=== PATIENT | female | born 1940 | race Caucasian/White ===

== ENCOUNTER 2018-10-03 18:56 | Inpatient (IN) | payer MEDICARE ==
[~2018-10-03] VITALS: Ht 165.1 cm; Wt 72.6 kg
[2018-10-03] MEDS ORDERED: Adenosine 6mg/2ml Inj IVP ONE (19:30)
--- NOTE | 2018-10-03 19:30 | NUR ---
ED Nurse Note: Patient walked in to ER due to palpitation. Patient's HR at triage 190. Stated that ate 70% chocolate 2 hrs ago, and after that her heart started bitting so fast. AAO x4, HR 190, other VSS at this time, skin is dry warm to touch.
[2018-10-03 19:31] LABS: BASOPHILS % (AUTO) 0.6 % (0.0-2.0); EOSINOPHILS % (AUTO) 0.5 % (0.0-3.0); HEMATOCRIT 42.9 % (37.0-47.0); HEMOGLOBIN 13.7 G/DL (12.0-16.0); LYMPHOCYTES % (AUTO) 11.4 % (20.0-45.0); MEAN CORPUSCULAR VOLUME 87 FL (80-99); MONOCYTES % (AUTO) 4.6 % (1.0-10.0); NEUTROPHILS % (AUTO) 82.9 % (45.0-75.0); PLATELET COUNT 249 K/UL (150-450); RED BLOOD COUNT 4.91 M/UL (4.20-5.40); RED CELL DISTRIBUTION WIDTH 12.8 % (11.6-14.8); WHITE BLOOD COUNT 12.5 K/UL (4.8-10.8)
[2018-10-03 19:48] LABS: ANION GAP 10 mmol/L (5-15); BLOOD UREA NITROGEN 19 mg/dL (7-18); CARBON DIOXIDE 25 MMOL/L (21-32); CHLORIDE 102 MMOL/L (98-107); CREATININE 0.9 MG/DL (0.55-1.30); POTASSIUM 4.1 MMOL/L (3.5-5.1); SODIUM 137 MMOL/L (136-145)
--- NOTE | 2018-10-03 19:52 | Emergency Room Report ---
History of Present Illness General Chief Complaint: Palpitations Source: Patient Present Illness HPI Patient presents with complaints of palpitation sensation ongoing for approximately 2 hours prior to arrival patient provides a remote history of some similar presentation many years ago Denies any chest pain or heaviness with this denies any vomiting patient reports eating a piece of chocolate In correlation with the symptoms starting As the palpitation sensation progressed she was concerned and came to the ER denies any neck pain denies any jaw pain denies any focal weakness Allergies: Coded Allergies: SULFA (SULFONAMIDE ANTIBIOTICS) (Unverified Allergy, Unknown, 10/04/18) Uncoded Allergies: SULFA (Allergy, Unknown, 10/03/18) Patient History Past Medical History: see triage record Pertinent Family History: none Now: No Reviewed Nursing Documentation: PMH: Agreed; PSxH: Agreed Nursing Documentation-PMH Past Medical History: No History, Except For Hx Diabetes: Yes Review of Systems All Other Systems: negative except mentioned in HPI Physical Exam Vital Signs Date Time Temp Pulse Resp B/P (MAP) Pulse Ox O2 Delivery O2 Flow Rate FiO2 10/03/18 18:58 97.5 196 20 106/52 (70) 95 Room Air Sp02 EP Interpretation: reviewed, normal General Appearance: mild distress Head: normocephalic, atraumatic Eyes: bilateral eye PERRL, bilateral eye EOMI ENT: hearing grossly normal, normal pharynx, TMs + canals normal, uvula midline Neck: full range of motion, supple, no meningismus, no bony tend Respiratory: lungs clear, normal breath sounds, no rhonchi, no respiratory distress, no retraction, no accessory muscle use Cardiovascular #1: normal peripheral pulses, no edema, no gallop, no JVD, no murmur, tachycardia Gastrointestinal: normal bowel sounds, non tender, soft, no mass, no organomegaly, non-distended, no guarding, no hernia, no pulsatile mass, no rebound Genitourinary: no CVA tenderness Musculoskeletal: normal inspection Neurologic: oriented x3, responsive, deputy commonwealth's attorney III-XII nml as tested, motor strength/ tone normal, sensory intact Psychiatric: mood/affect normal Skin: no rash Lymphatic: normal inspection, no adenopathy Procedures Critical Care Time Critical Care Time 50 minutes for multiple re-evaluations critical presentation concern for cardiopulmonary arrest not including any procedural time Medical Decision Making Diagnostic Impression: Primary Impression: SVT (supraventricular tachycardia) Additional Impressions: Palpitations Elevated troponin ER Course Patient is a fairly complex patient with multiple differential to consideration including but not limited to cardiac cardiopulmonary and vascular emergencies Patient's heart rate on exam is extremely tachycardic EKG shows concerning findings of SVT patient placed on a score caller And after initial attempt of vagal maneuvering which was not successful patient was provided with adenosine After 1 dose patient did respond well and converted to a sinus rhythm Patient does appear to show some signs of troponin Leak was provided with Blood thinning medication as well Remains chest pain-free and improved for admission for continued inpatient care Labs Test 10/03/18 19:15 White Blood Count 12.5 K/UL (4.8-10.8) Red Blood Count 4.91 M/UL (4.20-5.40) Hemoglobin 13.7 G/DL (12.0-16.0) Hematocrit 42.9 % (37.0-47.0) Mean Corpuscular Volume 87 FL (80-99) Mean Corpuscular Hemoglobin 27.9 PG (27.0-31.0) Mean Corpuscular Hemoglobin Concent 32.0 G/DL (32.0-36.0) Red Cell Distribution Width 12.8 % (11.6-14.8) Platelet Count 249 K/UL (150-450) Mean Platelet Volume 8.9 FL (6.5-10.1) Neutrophils (%) (Auto) 82.9 % (45.0-75.0) Lymphocytes (%) (Auto) 11.4 % (20.0-45.0) Monocytes (%) (Auto) 4.6 % (1.0-10.0) Eosinophils (%) (Auto) 0.5 % (0.0-3.0) Basophils (%) (Auto) 0.6 % (0.0-2.0) Prothrombin Time 10.2 SEC (9.30-11.50) Prothromb Time International Ratio 1.0 (0.9-1.1) Activated Partial Thromboplast Time 27 SEC (23-33) Sodium Level 137 MMOL/L (136-145) Potassium Level 4.1 MMOL/L (3.5-5.1) Chloride Level 102 MMOL/L (98-107) Carbon Dioxide Level 25 MMOL/L (21-32) Anion Gap 10 mmol/L (5-15) Blood Urea Nitrogen 19 mg/dL (7-18) Creatinine 0.9 MG/DL (0.55-1.30) Estimat Glomerular Filtration Rate mL/min (>60) Glucose Level 237 MG/DL (74-106) Calcium Level 9.0 MG/DL (8.5-10.1) Total Bilirubin 0.8 MG/DL (0.2-1.0) Aspartate Amino Transf (AST/SGOT) 18 U/L (15-37) Alanine Aminotransferase (ALT/SGPT) 22 U/L (12-78) Alkaline Phosphatase 73 U/L (46-116) Total Creatine Kinase 52 U/L (26-308) Creatine Kinase MB 3.0 NG/ML (0.0-3.6) Creatine Kinase MB Relative Index 5.7 Troponin I 0.178 ng/mL (0.000-0.056) Pro-B-Type Natriuretic Peptide 204 pg/mL (0-125) Total Protein 7.2 G/DL (6.4-8.2) Albumin 3.5 G/DL (3.4-5.0) Globulin 3.7 g/dL Albumin/Globulin Ratio 0.9 (1.0-2.7) Lipase 105 U/L (73-393) EKG Diagnostic Results Rate: tachycardiac Rhythm: other - svt Other Impression svt Rhythm Strip Diag. Results EP Interpretation: yes Rate: 190 Rhythm: no PVC's, other - svt Chest X-Ray Diagnostic Results Chest X-Ray Diagnostic Results : Chest X-Ray Ordered: Yes # of Views/Limited/Complete: 1 View Indication: Other - palpitation EP Interpretation: Yes Interpretation: no consolidation, no effusion, no pneumothorax Impression: No acute disease Electronically Signed by: Wilfred James DO Last Vital Signs Date Time Temp Pulse Resp B/P (MAP) Pulse Ox O2 Delivery O2 Flow Rate FiO2 10/03/18 19:42 190 10/03/18 19:41 117/55 10/03/18 18:58 97.5 20 95 Room Air Status: improved Disposition: ADMITTED INPATIENT Condition: Serious Wilfred James DO Oct 03, 2018 19:52
[2018-10-03 20:00] LABS: ALANINE AMINOTRANSFERASE 22 U/L (12-78); ALBUMIN 3.5 G/DL (3.4-5.0); ALBUMIN/GLOBULIN RATIO 0.9 (1.0-2.7); ALKALINE PHOSPHATASE 73 U/L (46-116); ASPARTATE AMINO TRANSFERASE 18 U/L (15-37); BILIRUBIN,TOTAL 0.8 MG/DL (0.2-1.0); CREATINE KINASE 52 U/L (26-308)
[2018-10-03] MEDS ORDERED: Enoxaparin 80mg Inj SUBQ ONE (20:30)
[2018-10-03 21:00] VITALS: BP 117/55
[2018-10-03] MEDS ORDERED: Enalaprilat 1.25mg/ml Inj IV PRN (21:30)
[2018-10-03] MEDS ORDERED: dilTIAZem HCl 25mg/5ml Inj IV PRN (21:30)
[2018-10-03] MEDS ORDERED: Nitroglycerin Subl 0.4mg tab SL PRN (21:30)
[2018-10-03] MEDS ORDERED: Metoprolol 5mg/5ml Inj IVP PRN (21:30)
[2018-10-03] MEDS ORDERED: Albuterol/Ipratropium 3ml neb HHN PRN (21:30)
[2018-10-03] MEDS ORDERED: Miralax 17gm pkt ORAL PRN (21:30)
[2018-10-03 21:48] VITALS: BP 125/65
--- NOTE | 2018-10-03 21:48 | NUR ---
ED Nurse Note: Patient was admited to Tele due to palpitation, high HR. Patient was transfered to the unit via gurney by ACLS protocol with all belongings. AAO x4, VSS at this time, skin is dry warm to touch.
[2018-10-03 22:00] VITALS: BP 118/53
--- NOTE | 2018-10-03 22:00 | NUR ---
NURSE NOTES: Received report from Kenyetta RN, pt. received from ER, pt. A/O x's4- able to make needs known, night monitor placed- VS taken, full body assessment done- skin intact, pt. teaching done and pt. oriented to room, no signs or symptoms of acute cardiac or respiratory distress noted, bed in lowest position and call light within easy reach, bed alarm on, side rails up x's3 and safety brakes engaged, pt. appears to be sating well on 2L NC at 96%- no distress noted, pt. is clean and dry, and appears to be resting comfortably in bed, RT. AC 20G IV intact and patent, pt. aware to ask for assist when ambulating to bathroom, safety measures continued, will continue with plan of care.
[2018-10-03] MEDS ORDERED: METFORMIN HCL500 M1 ORAL (22:51)
[2018-10-03] MEDS ORDERED: GLIMEPIRIDE2 MG ORAL (22:52)
[2018-10-04] VITALS: BP 110/55
[2018-10-04 04:00] VITALS: BP 129/54
--- NOTE | 2018-10-04 06:00 | NUR ---
NURSE NOTES: left message with Dietary regarding pt. requesting Dairy free, gluten free and sugar free breakfast- prefers oatmeal-detailed message left over voicemail.
[2018-10-04 07:09] LABS: INR 0.9 (0.9-1.1)
[2018-10-04 07:12] LABS: BASOPHILS % (AUTO) 1.1 % (0.0-2.0); EOSINOPHILS % (AUTO) 1.6 % (0.0-3.0); HEMATOCRIT 39.2 % (37.0-47.0); HEMOGLOBIN 12.6 G/DL (12.0-16.0); LYMPHOCYTES % (AUTO) 38.6 % (20.0-45.0); MEAN CORPUSCULAR VOLUME 89 FL (80-99); MONOCYTES % (AUTO) 8.3 % (1.0-10.0); NEUTROPHILS % (AUTO) 50.4 % (45.0-75.0); PLATELET COUNT 211 K/UL (150-450); RED BLOOD COUNT 4.43 M/UL (4.20-5.40); RED CELL DISTRIBUTION WIDTH 13.3 % (11.6-14.8); WHITE BLOOD COUNT 6.7 K/UL (4.8-10.8)
--- NOTE | 2018-10-04 07:16 | NUR ---
HAND-OFF: Report given to Miriam MUSTAFA, pt. remains stable and no signs of distress noted.
--- NOTE | 2018-10-04 07:27 | NUR ---
NURSE NOTES: received patient report from april hilliard. patient is on bed asleep. not in acute distress. comfortable. skin is intact. Iv site noted. will follow plan of care.
[2018-10-04 07:37] LABS: CHOLESTEROL 168 MG/DL (< 200); HDL CHOLESTEROL 48 MG/DL (40-60); TRIGLYCERIDES 96 MG/DL (30-150)
[2018-10-04 08:00] VITALS: BP 130/53
[2018-10-04] MEDS: metFORMIN 500mg tab ORAL SCH ×2 (10:10→17:41)
--- NOTE | 2018-10-04 10:30 | NUR ---
NURSE NOTES: left a message to thi TAYLOR that patient wishes to go home after her echo and does not want to stay another night here in the hospital. awaits callback and new order.
--- NOTE | 2018-10-04 10:43 | Consultation ---
History of Present Illness General Date patient seen: Oct 04, 2018 Time patient seen: 10:00 Chief Complaint: Palpitations Referring physician: Dr Scruggs Reason for Consultation: 77 years old female with past medical history of d Present Illness HPI 77 years old female with PMH of DM and palpitations, presented to emergency department after she called paramedics due to palpitations. Heart rate was in 190th. Patient apparently had a bar , containing 80% of the chocolate and shortly after started to feel palpitations along with lightheadedness and dizziness. Upon presentation to the emergency department heart rate 196. Patient received adenosine 6 mg and spontaneously converted to sinus rhythm. Laboratory work-up revealed mild leukocytosis, WBC 12.5, stable hemoglobin and hematocrit. Stable electrolytes and renal parameters. Glucose 237. Troponin elevated 0.178. Pro BNP 204. Patient subsequently admitted for further management . Upon further questioning patient reported that she had palpitations off and on for a long time . Her thyroid panel is being checked every 3 to 4 months, and remains stable. Usually she is asymptomatic , but at this time she developed lightheadedness and dizziness. She denied perspiration, nausea, vomiting. Patient stated that initially there was no chest pain, but after heart was beating so fast, she started to develop what she called " discomfort in her chest". She denied cough. No history of coronary artery disease or congestive heart failure. Allergies: Coded Allergies: SULFA (SULFONAMIDE ANTIBIOTICS) (Unverified Allergy, Unknown, 10/04/18) Uncoded Allergies: SULFA (Allergy, Unknown, 10/03/18) Medication History Scheduled Glimepiride (Glimepiride), Unknown Dose ORAL BEFORE BREAKFAST, (Reported) Metformin Hcl* (Metformin Hcl*), 1,000 MG ORAL TWICE A DAY, (Reported) Patient History History Provided By: Patient Healthcare decision maker N Resuscitation status Full Code Advanced Directive on File Past Medical/Surgical History Past Medical/Surgical History: (1) Diabetes Review of Systems Constitutional: Reports: weakness Eye: Reports: no symptoms ENT: Reports: no symptoms Respiratory: Reports: no symptoms Cardiovascular: Reports: see HPI Gastrointestinal: Reports: no symptoms Genitourinary: Reports: no symptoms Musculoskeletal: Reports: no symptoms Skin: Reports: no symptoms Psychiatric: Reports: no symptoms Neurological: Reports: dizziness, other - lightheadness Endocrine: Reports: other - diabetes Hematologic/Lymphatic: Reports: no symptoms Physical Exam General Appearance: WD/WN, no apparent distress, alert, alert oriented x3 Lines, tubes and drains: peripheral HEENT: normocephalic, atraumatic, anicteric, mucous membranes moist, PERRL, EOMI, pharynx normal, supple, no JVD Neck: non-tender, supple Respiratory/Chest: chest wall non-tender, lungs clear, no respiratory distress , no accessory muscle use Cardiovascular/Chest: normal peripheral pulses, normal rate, regular rhythm - SR on tele , no JVD Abdomen: normal bowel sounds, non tender, soft Extremities: normal range of motion, non-tender, no calf tenderness Skin Exam: warm/dry Neurologic: alert, oriented x 3, responsive, normal mood/affect Musculoskeletal: normal muscle bulk Last 24 Hour Vital Signs Date Time Temp Pulse Resp B/P (MAP) Pulse Ox O2 Delivery O2 Flow Rate FiO2 10/04/18 09:00 Room Air 10/04/18 07:51 66 10/04/18 04:00 97.7 69 16 129/54 (79) 98 10/04/18 04:00 66 10/04/18 00:00 75 10/04/18 00:00 98.2 83 17 110/55 (73) 98 10/03/18 22:00 97.5 83 18 118/53 (74) 96 10/03/18 22:00 Room Air 10/03/18 22:00 82 10/03/18 21:48 97.5 87 20 125/65 95 Room Air 10/03/18 21:48 97.5 87 20 125/65 95 Room Air 10/03/18 21:00 97.5 190 20 117/55 95 Room Air 10/03/18 19:42 190 10/03/18 19:41 81 117/55 10/03/18 18:58 97.5 196 20 106/52 (70) 95 Room Air Laboratory Tests Test 10/03/18 19:15 10/04/18 05:50 White Blood Count 12.5 K/UL (4.8-10.8) H 6.7 K/UL (4.8-10.8) Red Blood Count 4.91 M/UL (4.20-5.40) 4.43 M/UL (4.20-5.40) Hemoglobin 13.7 G/DL (12.0-16.0) 12.6 G/DL (12.0-16.0) Hematocrit 42.9 % (37.0-47.0) 39.2 % (37.0-47.0) Mean Corpuscular Volume 87 FL (80-99) 89 FL (80-99) Mean Corpuscular Hemoglobin 27.9 PG (27.0-31.0) 28.4 PG (27.0-31.0) Mean Corpuscular Hemoglobin Concent 32.0 G/DL (32.0-36.0) 32.1 G/DL (32.0-36.0) Red Cell Distribution Width 12.8 % (11.6-14.8) 13.3 % (11.6-14.8) Platelet Count 249 K/UL (150-450) 211 K/UL (150-450) Mean Platelet Volume 8.9 FL (6.5-10.1) 8.5 FL (6.5-10.1) Neutrophils (%) (Auto) 82.9 % (45.0-75.0) H 50.4 % (45.0-75.0) Lymphocytes (%) (Auto) 11.4 % (20.0-45.0) L 38.6 % (20.0-45.0) Monocytes (%) (Auto) 4.6 % (1.0-10.0) 8.3 % (1.0-10.0) Eosinophils (%) (Auto) 0.5 % (0.0-3.0) 1.6 % (0.0-3.0) Basophils (%) (Auto) 0.6 % (0.0-2.0) 1.1 % (0.0-2.0) Prothrombin Time 10.2 SEC (9.30-11.50) 10.1 SEC (9.30-11.50) Prothromb Time International Ratio 1.0 (0.9-1.1) 0.9 (0.9-1.1) Activated Partial Thromboplast Time 27 SEC (23-33) 29 SEC (23-33) Sodium Level 137 MMOL/L (136-145) Potassium Level 4.1 MMOL/L (3.5-5.1) Chloride Level 102 MMOL/L (98-107) Carbon Dioxide Level 25 MMOL/L (21-32) Anion Gap 10 mmol/L (5-15) Blood Urea Nitrogen 19 mg/dL (7-18) H Creatinine 0.9 MG/DL (0.55-1.30) Estimat Glomerular Filtration Rate mL/min (>60) Glucose Level 237 MG/DL (74-106) H Calcium Level 9.0 MG/DL (8.5-10.1) Total Bilirubin 0.8 MG/DL (0.2-1.0) Aspartate Amino Transf (AST/SGOT) 18 U/L (15-37) Alanine Aminotransferase (ALT/SGPT) 22 U/L (12-78) Alkaline Phosphatase 73 U/L (46-116) Total Creatine Kinase 52 U/L (26-308) Creatine Kinase MB 3.0 NG/ML (0.0-3.6) Creatine Kinase MB Relative Index 5.7 Troponin I 0.178 ng/mL (0.000-0.056) Pro-B-Type Natriuretic Peptide 204 pg/mL (0-125) H Total Protein 7.2 G/DL (6.4-8.2) Albumin 3.5 G/DL (3.4-5.0) Globulin 3.7 g/dL Albumin/Globulin Ratio 0.9 (1.0-2.7) L Lipase 105 U/L (73-393) C-Reactive Protein, Quantitative 1.6 mg/dL (0.00-0.90) H Triglycerides Level 96 MG/DL (30-150) Cholesterol Level 168 MG/DL (< 200) LDL Cholesterol 106 mg/dL (<100) H HDL Cholesterol 48 MG/DL (40-60) Cholesterol/HDL Ratio 3.5 (3.3-4.4) Thyroid Stimulating Hormone (TSH) 1.353 uiU/mL (0.358-3.740) Height (Feet): 5 Height (Inches): 5.00 Weight (Pounds): 160 Medications Current Medications Medications (Trade) Dose Ordered Sig/Kash Route PRN Reason Start Time Stop Time Status Last Admin Dose Admin Acetaminophen (Tylenol) 650 mg Q4H PRN ORAL FEVER 10/03/18 21:30 11/02/18 21:29 Albuterol/ Ipratropium (Albuterol/ Ipratropium) 3 ml Q4H PRN HHN Shortness of Breath 10/03/18 21:30 10/08/18 21:29 Diltiazem HCl (Cardizem) 10 mg Q1H PRN IV heart rate more than 120, 10/03/18 21:30 11/02/18 21:29 Enalaprilat (Vasotec) 2.5 mg Q6H PRN IV sbp more than 160 10/03/18 21:30 11/02/18 21:29 Glimepiride (Amaryl) 2 mg Q24H ORAL 10/04/18 18:00 11/03/18 17:59 Metformin HCl (Glucophage) 500 mg BID ORAL 10/04/18 10:00 11/03/18 09:59 10/04/18 10:10 Metoprolol Tartrate (Lopressor) 5 mg Q1H PRN IVP heart rate more than 140 10/03/18 21:30 11/02/18 21:29 Nitroglycerin (Ntg) 0.4 mg Q5M PRN SL Prn Chest Pain 10/03/18 21:30 11/02/18 21:29 Ondansetron HCl (Zofran) 4 mg Q6H PRN IVP Nausea & Vomiting 10/03/18 21:30 11/02/18 21:29 Pantoprazole (Protonix) 40 mg DAILY ORAL 10/04/18 09:00 11/03/18 08:59 Polyethylene Glycol (Miralax) 17 gm DAILYPRN PRN ORAL Constipation 10/03/18 21:30 11/02/18 21:29 Temazepam (Restoril) 15 mg HSPRN PRN ORAL Insomnia 10/03/18 21:30 10/10/18 21:29 Assessment/Plan Assessment/Plan: ASSESSMENT SVT-resolved ( after Adenosine) Elevated troponin, r/o ACS Borderline hypercholesterolemia Diabetes mellitus Palpitations PLAN OF CARE Telemetry Serial troponin , repeat EKG ECHO Cardio follows Elevated troponin could have been due to SVT ; no complaints of CP, no SOB antiplatelet therapy with ASA BP stable , cardio added low dsoe routine BB Cardizem and BB on board as needed for heart rate control , remains in SR ? hx of atrial flutter patient f/up with outpatient sales team leader and had a less than a year ago treadmill stress test , which was negative she also had Holter at that time reports hx of leaking valve Lipid panel with borderline elevated LDL patient counseled on low-fat , low-cholesterol diabetic diet consider starting statin patient reluctant at this time BS management with metformin and Amaryl , check hemoglobin A1c GI prophylaxis patient wants to go home after ECHO case discussed and evaluated by supervising physician Idania Mosley NP Oct 04, 2018 10:43
[2018-10-04] MEDS ORDERED: NS 275ml ONE (10:53)
--- NOTE | 2018-10-04 10:56 | Diagnostic Imaging Report ---
Indication: Dyspnea Comparison: None A single view chest radiograph was obtained. Findings: No definite infiltrate or pulmonary vascular congestion identified. The heart is normal in size. The aorta is mildly enlarged consistent with atherosclerotic vascular disease. The bones are osteopenic. Impression: No acute disease
[2018-10-04 12:00] VITALS: BP 139/64
--- NOTE | 2018-10-04 13:10 | NUR ---
NURSE NOTES: facesheet/info sheet was faxed to [phone] per instruction from transfer center. faxed successfully and was received.
--- NOTE | 2018-10-04 13:39 | Cardiac Electrophysiology PN ---
Subjective Subjective [id number] Objective Last 24 Hour Vital Signs Date Time Temp Pulse Resp B/P (MAP) Pulse Ox O2 Delivery O2 Flow Rate FiO2 10/04/18 12:00 97.8 68 18 139/64 (89) 99 10/04/18 09:00 Room Air 10/04/18 08:00 97.6 73 18 130/53 (78) 96 10/04/18 07:51 66 10/04/18 04:00 97.7 69 16 129/54 (79) 98 10/04/18 04:00 66 10/04/18 00:00 75 10/04/18 00:00 98.2 83 17 110/55 (73) 98 10/03/18 22:00 97.5 83 18 118/53 (74) 96 10/03/18 22:00 Room Air 10/03/18 22:00 82 10/03/18 21:48 97.5 87 20 125/65 95 Room Air 10/03/18 21:48 97.5 87 20 125/65 95 Room Air 10/03/18 21:00 97.5 190 20 117/55 95 Room Air 10/03/18 19:42 190 10/03/18 19:41 81 117/55 10/03/18 18:58 97.5 196 20 106/52 (70) 95 Room Air Laboratory Tests Test 10/03/18 19:15 10/04/18 05:50 White Blood Count 12.5 K/UL (4.8-10.8) H 6.7 K/UL (4.8-10.8) Red Blood Count 4.91 M/UL (4.20-5.40) 4.43 M/UL (4.20-5.40) Hemoglobin 13.7 G/DL (12.0-16.0) 12.6 G/DL (12.0-16.0) Hematocrit 42.9 % (37.0-47.0) 39.2 % (37.0-47.0) Mean Corpuscular Volume 87 FL (80-99) 89 FL (80-99) Mean Corpuscular Hemoglobin 27.9 PG (27.0-31.0) 28.4 PG (27.0-31.0) Mean Corpuscular Hemoglobin Concent 32.0 G/DL (32.0-36.0) 32.1 G/DL (32.0-36.0) Red Cell Distribution Width 12.8 % (11.6-14.8) 13.3 % (11.6-14.8) Platelet Count 249 K/UL (150-450) 211 K/UL (150-450) Mean Platelet Volume 8.9 FL (6.5-10.1) 8.5 FL (6.5-10.1) Neutrophils (%) (Auto) 82.9 % (45.0-75.0) H 50.4 % (45.0-75.0) Lymphocytes (%) (Auto) 11.4 % (20.0-45.0) L 38.6 % (20.0-45.0) Monocytes (%) (Auto) 4.6 % (1.0-10.0) 8.3 % (1.0-10.0) Eosinophils (%) (Auto) 0.5 % (0.0-3.0) 1.6 % (0.0-3.0) Basophils (%) (Auto) 0.6 % (0.0-2.0) 1.1 % (0.0-2.0) Prothrombin Time 10.2 SEC (9.30-11.50) 10.1 SEC (9.30-11.50) Prothromb Time International Ratio 1.0 (0.9-1.1) 0.9 (0.9-1.1) Activated Partial Thromboplast Time 27 SEC (23-33) 29 SEC (23-33) Sodium Level 137 MMOL/L (136-145) Potassium Level 4.1 MMOL/L (3.5-5.1) Chloride Level 102 MMOL/L (98-107) Carbon Dioxide Level 25 MMOL/L (21-32) Anion Gap 10 mmol/L (5-15) Blood Urea Nitrogen 19 mg/dL (7-18) H Creatinine 0.9 MG/DL (0.55-1.30) Estimat Glomerular Filtration Rate mL/min (>60) Glucose Level 237 MG/DL (74-106) H Calcium Level 9.0 MG/DL (8.5-10.1) Total Bilirubin 0.8 MG/DL (0.2-1.0) Aspartate Amino Transf (AST/SGOT) 18 U/L (15-37) Alanine Aminotransferase (ALT/SGPT) 22 U/L (12-78) Alkaline Phosphatase 73 U/L (46-116) Total Creatine Kinase 52 U/L (26-308) Creatine Kinase MB 3.0 NG/ML (0.0-3.6) Creatine Kinase MB Relative Index 5.7 Troponin I 0.178 ng/mL (0.000-0.056) Pro-B-Type Natriuretic Peptide 204 pg/mL (0-125) H Total Protein 7.2 G/DL (6.4-8.2) Albumin 3.5 G/DL (3.4-5.0) Globulin 3.7 g/dL Albumin/Globulin Ratio 0.9 (1.0-2.7) L Lipase 105 U/L (73-393) C-Reactive Protein, Quantitative 1.6 mg/dL (0.00-0.90) H Triglycerides Level 96 MG/DL (30-150) Cholesterol Level 168 MG/DL (< 200) LDL Cholesterol 106 mg/dL (<100) H HDL Cholesterol 48 MG/DL (40-60) Cholesterol/HDL Ratio 3.5 (3.3-4.4) Thyroid Stimulating Hormone (TSH) 1.353 uiU/mL (0.358-3.740) Bebeto Serra MD Oct 04, 2018 13:39
--- NOTE | 2018-10-04 13:47 | NUR ---
NURSE NOTES: left a message to dr mancia regarding this patient. patient wants to be transferred to [facility]. per dr Mancia,Ok to transfer. will take note and carry out.
--- NOTE | 2018-10-04 14:45 | History and Physical Report ---
DATE OF ADMISSION: 10/03/2018 DATE AND TIME SEEN: 10/04/2018 at 12 noon. CONSULTANTS: 1. Bebeto Serra M.D. 2. Brando Carvalho M.D. CHIEF COMPLAINT: Rapid heartbeat, SVT, elevated troponin. BRIEF HISTORY: This is a 77-year-old female, who lives at home, yesterday had some rapid heartbeat intermittently, had a similar problem 25 years ago, but nothing since. The patient is slightly weak, slight dizzy. No loss of conscious. The patient came to [facility], diagnosed with SVT and also troponin 0.178, admitted to telemetry for further care. Currently, calm in bed, getting ultrasound of the heart. No complaint. REVIEW OF SYSTEMS: No chest pain. No shortness of breath. No nausea, vomiting, or diarrhea. PAST MEDICAL HISTORY: Diabetes. PAST SURGICAL HISTORY: Cataract and hysterectomy. MEDICATIONS: Include glimepiride, metformin, pantoprazole, albuterol, nitroglycerin, polyethylene glycol, , enalapril, diltiazem, and metoprolol. ALLERGIES: Sulfa. SOCIAL HISTORY: No smoking. No alcohol. No intravenous drug abuse. FAMILY HISTORY: Noncontributory. PHYSICAL EXAMINATION: GENERAL: Calm in bed, oriented x3, no acute distress. VITAL SIGNS: Temperature 97, pulse 68, respirations 18, blood pressure 139/64. CARDIOVASCULAR: No murmur. LUNGS: Distant and clear. ABDOMEN: Positive bowel sounds. Soft, nontender, nondistended. EXTREMITIES: No cyanosis or edema. NEUROLOGIC: The patient moves all extremities, slightly weak. LABORATORY AND DIAGNOSTIC DATA: Labs at this time show CBC is normal. BUN and creatinine 19 and 0.9, glucose 237. Troponin 0.178. BNP is 204. INR is 1.0, PTT 27. ASSESSMENT: 1. SVT. 2. Elevated troponin. 3. Diabetes. PLAN: 1. Troponin q.8 h. x3. 2. EKG in the morning. 3. Resume home medications. 4. Blood pressure, blood sugar, pain control. 5. Dietary followup. 6. Cardiology followup. Logan Scruggs D.O. DR: LEONID JOB#: [id number] CC:
[2018-10-04 16:00] VITALS: BP 129/56
--- NOTE | 2018-10-04 16:59 | NUR ---
NURSE NOTES: called [facility] transfer center, family member was asking for an update for the transfer. per [facility] transfer will not happen tonight, theres a long waitng list and no bed available yet.family member and patient made aware.
[2018-10-04] MEDS ORDERED: metFORMIN 500mg tab ORAL SCH (17:45)
[2018-10-04] MEDS ORDERED: Glimepiride 1mg tab ORAL SCH (18:00)
--- NOTE | 2018-10-04 19:05 | NUR ---
NURSE NOTES: left a message to dr Serra regarding patients trop level of 2.620. awaits callback and new order.
--- NOTE | 2018-10-04 19:06 | NUR ---
HAND-OFF: Report given to maciej helton rn.
--- NOTE | 2018-10-04 19:15 | Consultation ---
DATE OF CONSULTATION: 10/04/2018 CARDIAC ELECTROPHYSIOLOGY CONSULTATION CONSULTING PHYSICIAN: Bebeto Serra M.D. REFERRING PHYSICIAN: Logan Scruggs D.O. REASON FOR CONSULTATION: Elevated troponin and supraventricular tachycardia. HISTORY OF PRESENT ILLNESS: The patient is a very pleasant 77-year-old lady with history of palpitations presented from home due to elevated heart rate for 2 hours. At triage, the patient's heart rate was almost 200 beats per minute. [facility] Dr[facility] Moreno Montes. Cardiac electrophysiology consultation was obtained for further evaluation and management. The patient had similar episodes in the past, but was treated with medication. REVIEW OF SYSTEMS: Review of systems was performed and was negative other than what was mentioned in the history of present illness. PAST MEDICAL HISTORY: 1. Diabetes. 2. Asthma. FAMILY HISTORY: Noncontributory. SOCIAL HISTORY: She lives at home. Does not smoke or drink alcohol. PHYSICAL EXAMINATION: VITAL SIGNS: Blood pressure is 139/64, pulse 68, respiratory rate 18, and temperature 97.8. HEAD AND NECK: Showed no JVD or carotid bruits. LUNGS: Clear. CARDIOVASCULAR: Shows irregular S1 and S2 with no gallop or murmur. ABDOMEN: Soft. EXTREMITIES: No pitting edema. LABORATORY AND DIAGNOSTIC DATA: Her EKG from 10/03/2018 showed supraventricular tachycardia at the rate of 195 beats per minute. There is marked ST abnormalities with inferolateral ischemia. Labs show white count of 6.7, hemoglobin 12.7, hematocrit of 39.5, and platelet count of 211,000. Sodium 137, potassium 4.1, BUN of 19, creatinine of 0.9, and glucose of 237. Her troponin is 0.0178. ASSESSMENT AND PLAN: 1. Recurrent palpitation and documented supraventricular tachycardia at the rate of almost 200 beats per minute in a 77-year-old lady. This resulted in troponin elevation and inferolateral ST depression. Her best option would be to proceed with electrophysiology study and ablation of this arrhythmia. We will completely rule out myocardial infarction protocol and get an echocardiogram to rule out for ejection fraction and wall motion abnormality. It is of note that her followup EKG showed normal sinus rhythm with no evidence of pre-excitation. I discussed with the patient's nephew, who is the emergency room physician and is also an chef de froid on the phone and he also agrees that the patient needs to transferred for electrophysiology study for further evaluation. 2. Non-ST elevation myocardial infarction with elevated troponin and abnormal EKG, likely precipitated by SVT. I will put the patient on aspirin and beta-shadi and statin at this time. We will follow up troponin and get an echocardiogram for further evaluation and management. 3. Diabetes. On metformin and Amaryl. Thank you very much, Dr. Scruggs, for allowing me to participate in the care of this patient. Please do not hesitate to contact me for any questions regarding my evaluation. Bebeto Serra M.D. DR: VILMA JOB#: [id number] CC:
--- NOTE | 2018-10-04 19:28 | NUR ---
NURSE NOTES: dr martinez called back and ordered repeat trop dariusz am.will take note and carry out. endorse to noc nurse.
--- NOTE | 2018-10-04 19:30 | NUR ---
NURSE NOTES: Pt received from MOON Pineda alert and oriented x4 with no acute s/s of distress noted. IV site asymptomatic and patent on R ac 20g, saline lock. Bed in lowest position, call light and belongings within reach. RN endorsed to Dr. Serra that pt's current DVT is ambulation and endorsed if pt requires further DVT prophylaxis d/t recent trop levels, currently awaiting call back. Will continue to monitor pt.
[2018-10-04 20:00] VITALS: BP 146/54
[2018-10-04] MEDS: Metoprolol 25mg tab ORAL SCH (21:03)
[2018-10-05] VITALS: BP 114/55
[2018-10-05 04:00] VITALS: BP 117/59
[2018-10-05 07:23] LABS: BASOPHILS % (AUTO) 1.2 % (0.0-2.0); EOSINOPHILS % (AUTO) 2.9 % (0.0-3.0); HEMATOCRIT 42.2 % (37.0-47.0); HEMOGLOBIN 13.7 G/DL (12.0-16.0); LYMPHOCYTES % (AUTO) 20.8 % (20.0-45.0); MEAN CORPUSCULAR VOLUME 89 FL (80-99); MONOCYTES % (AUTO) 6.4 % (1.0-10.0); NEUTROPHILS % (AUTO) 68.8 % (45.0-75.0); PLATELET COUNT 204 K/UL (150-450); RED BLOOD COUNT 4.76 M/UL (4.20-5.40); RED CELL DISTRIBUTION WIDTH 13.5 % (11.6-14.8); WHITE BLOOD COUNT 6.8 K/UL (4.8-10.8)
--- NOTE | 2018-10-05 07:32 | NUR ---
HAND-OFF: Report given to MOON Paredes. No acute s/s of distress noted.
[2018-10-05 07:39] LABS: ANION GAP 9 mmol/L (5-15); BLOOD UREA NITROGEN 12 mg/dL (7-18); CALCIUM 9.1 MG/DL (8.5-10.1); CARBON DIOXIDE 26 MMOL/L (21-32); CHLORIDE 107 MMOL/L (98-107); CHOLESTEROL 205 MG/DL (< 200); CREATININE 0.7 MG/DL (0.55-1.30); HDL CHOLESTEROL 54 MG/DL (40-60); POTASSIUM 4.4 MMOL/L (3.5-5.1); SODIUM 142 MMOL/L (136-145); TRIGLYCERIDES 102 MG/DL (30-150)
--- NOTE | 2018-10-05 07:39 | NUR ---
NURSE NOTES: Received report from MOON Siddiqui. Patient in bed resting, no active s/s cardiac, respiratory distress noticed at this time. Patient on room air, AOx4, SR with HR 63 at this time. IV on right AC 20G, asymptomatic, patent, intact. Endorsed MD made are of troponin level, no order given at this time. Bed in lowest position, side rails upx3, call light within reach. Will continue to monitor.
[2018-10-05 08:00] VITALS: BP 141/66
--- NOTE | 2018-10-05 08:09 | NUR ---
NURSE NOTES: Dr. Serra made aware of troponin level 2.007 today. No order given at this time. Will continue to monitor.
[2018-10-05 08:18] VITALS: BP 141/66
[2018-10-05] MEDS: Metoprolol 25mg tab ORAL SCH (08:18)
--- NOTE | 2018-10-05 08:20 | Pulmonology Progress Note ---
Assessment/Plan Assessment/Plan ASSESSMENT SVT-resolved ( after Adenosine) Elevated troponin, likely NSTEMI Borderline hypercholesterolemia Diabetes mellitus Palpitations PLAN OF CARE Telemetry Serial troponin trended to 2, no acute ischemic changes. ECHO with pEF 65 % and RVSP of 23 Cardio follows Elevated troponin probably NSTEMI type 2 due to demand ischemia caused by SVT antiplatelet therapy with ASA BP stable , cardio added low dose routine BB statin Cardizem and BB on board as needed for heart rate control , remains in SR ? hx of atrial flutter patient f/up with outpatient steel roller and had a less than a year ago treadmill stress test , which was negative she also had Holter at that time reports hx of leaking valves Lipid panel with borderline elevated LDL patient counseled on low-fat , low-cholesterol diabetic diet on statin BS management with metformin and Amaryl , GI prophylaxis awaiting for tarmnsfer for EP study, no beds available case discussed and evaluated by supervising physician Subjective Allergies: Coded Allergies: SULFA (SULFONAMIDE ANTIBIOTICS) (Unverified Allergy, Unknown, 10/04/18) Uncoded Allergies: SULFA (Allergy, Unknown, 10/03/18) Subjective Denies chest pain, shortness of breath aware of pending transfer, however no available beds. Objective Last 24 Hour Vital Signs Date Time Temp Pulse Resp B/P (MAP) Pulse Ox O2 Delivery O2 Flow Rate FiO2 10/05/18 08:00 97.8 70 17 141/66 (91) 98 10/05/18 07:10 60 14 96 Room Air 21 10/05/18 04:00 97.8 63 18 117/59 (78) 96 10/05/18 04:00 60 10/05/18 00:00 98.0 70 18 114/55 (74) 95 10/05/18 00:00 65 10/04/18 21:03 75 146/54 10/04/18 21:00 Room Air 10/04/18 20:00 98.2 75 18 146/54 (84) 97 10/04/18 20:00 75 10/04/18 19:45 65 18 96 Room Air 21 10/04/18 16:00 98.5 82 18 129/56 (80) 97 10/04/18 15:30 71 10/04/18 12:00 97.8 68 18 139/64 (89) 99 10/04/18 11:31 64 10/04/18 09:00 Room Air Intake and Output 10/04/18 10/05/18 18:59 06:59 Intake Total 1200 ml 350 ml Balance 1200 ml 350 ml Intake Oral 1200 ml 350 ml # Voids 9 3 # Bowel Movements 2 1 Objective General Appearance: WD/WN, no apparent distress, alert, alert oriented x3 Lines, tubes and drains: peripheral HEENT: normocephalic, atraumatic, anicteric, mucous membranes moist, PERRL, EOMI, pharynx normal, supple, no JVD Neck: non-tender, supple Respiratory/Chest: chest wall non-tender, lungs clear, no respiratory distress , no accessory muscle use Cardiovascular/Chest: normal peripheral pulses, normal rate, regular rhythm - SR on tele , no JVD Abdomen: normal bowel sounds, non tender, soft Extremities: normal range of motion, non-tender, no calf tenderness Skin Exam: warm/dry Neurologic: alert, oriented x 3, responsive, normal mood/affect Musculoskeletal: normal muscle bulk Laboratory Tests 10/04/18 18:25: Troponin I 2.620H 10/05/18 06:35: Troponin I 2.007H, White Blood Count 6.8, Red Blood Count 4.76, Hemoglobin 13.7 , Hematocrit 42.2, Mean Corpuscular Volume 89, Mean Corpuscular Hemoglobin 28.8 , Mean Corpuscular Hemoglobin Concent 32.5, Red Cell Distribution Width 13.5, Platelet Count 204, Mean Platelet Volume 8.8, Neutrophils (%) (Auto) 68.8, Lymphocytes (%) (Auto) 20.8, Monocytes (%) (Auto) 6.4, Eosinophils (%) (Auto) 2.9, Basophils (%) (Auto) 1.2, Sodium Level 142, Potassium Level 4.4, Chloride Level 107, Carbon Dioxide Level 26, Anion Gap 9, Blood Urea Nitrogen 12, Creatinine 0.7, Estimat Glomerular Filtration Rate , Glucose Level 144H, Calcium Level 9.1, Pro-B-Type Natriuretic Peptide 996H, Triglycerides Level 102 , Cholesterol Level 205H, LDL Cholesterol 127H, HDL Cholesterol 54, Cholesterol/ HDL Ratio 3.8 Current Medications Medications (Trade) Dose Ordered Sig/Kash Route PRN Reason Start Time Stop Time Status Last Admin Dose Admin Acetaminophen (Tylenol) 650 mg Q4H PRN ORAL FEVER 10/03/18 21:30 11/02/18 21:29 Albuterol/ Ipratropium (Albuterol/ Ipratropium) 3 ml Q4H PRN HHN Shortness of Breath 10/03/18 21:30 10/08/18 21:29 Aspirin (Ecotrin) 81 mg DAILY ORAL 10/05/18 09:00 11/04/18 08:59 UNV Atorvastatin Calcium (Lipitor) 20 mg BEDTIME ORAL 10/05/18 21:00 11/04/18 20:59 UNV Diltiazem HCl (Cardizem) 10 mg Q1H PRN IV heart rate more than 120, 10/03/18 21:30 11/02/18 21:29 Enalaprilat (Vasotec) 2.5 mg Q6H PRN IV sbp more than 160 10/03/18 21:30 11/02/18 21:29 Glimepiride (Amaryl) 2 mg Q24H ORAL 10/04/18 18:00 11/03/18 17:59 10/04/18 17:41 Metformin HCl (Glucophage) 1,000 mg BID ORAL 10/05/18 09:00 11/04/18 08:59 Metoprolol Tartrate (Lopressor) 5 mg Q1H PRN IVP heart rate more than 140 10/03/18 21:30 11/02/18 21:29 Metoprolol Tartrate (Lopressor) 25 mg Q12HR ORAL 10/04/18 21:00 11/03/18 20:59 10/04/18 21:03 Nitroglycerin (Ntg) 0.4 mg Q5M PRN SL Prn Chest Pain 10/03/18 21:30 11/02/18 21:29 Ondansetron HCl (Zofran) 4 mg Q6H PRN IVP Nausea & Vomiting 10/03/18 21:30 11/02/18 21:29 Pantoprazole (Protonix) 40 mg DAILY ORAL 10/04/18 09:00 11/03/18 08:59 Polyethylene Glycol (Miralax) 17 gm DAILYPRN PRN ORAL Constipation 10/03/18 21:30 11/02/18 21:29 Temazepam (Restoril) 15 mg HSPRN PRN ORAL Insomnia 10/03/18 21:30 10/10/18 21:29 Idania Mosley NP Oct 05, 2018 08:20
[2018-10-05] MEDS ORDERED: metFORMIN 500mg tab ORAL SCH (09:00)
[2018-10-05] MEDS ORDERED: Aspirin EC 81mg tab ORAL SCH (09:00)
--- NOTE | 2018-10-05 09:24 | General Progress Note ---
Assessment/Plan Problem List: (1) SVT (supraventricular tachycardia) ICD Codes: I47.1 - Supraventricular tachycardia SNOMED: 4141445 (2) Troponin I above reference range ICD Codes: R74.8 - Abnormal levels of other serum enzymes SNOMED: 750498859 (3) Palpitations ICD Codes: R00.2 - Palpitations SNOMED: 08683294 (4) Diabetes ICD Codes: E11.9 - Type 2 diabetes mellitus without complications SNOMED: 80854105 Status: unchanged Assessment/Plan: cardio f/u pain control cbc bmp am cardio to do transfer [facility] Subjective Constitutional: Reports: weakness Allergies: Coded Allergies: SULFA (SULFONAMIDE ANTIBIOTICS) (Unverified Allergy, Unknown, 10/04/18) Uncoded Allergies: SULFA (Allergy, Unknown, 10/03/18) All Systems: reviewed and negative except above Subjective calm in bed Objective Last 24 Hour Vital Signs Date Time Temp Pulse Resp B/P (MAP) Pulse Ox O2 Delivery O2 Flow Rate FiO2 10/05/18 08:18 70 141/66 10/05/18 08:00 97.8 70 17 141/66 (91) 98 10/05/18 07:10 60 14 96 Room Air 21 10/05/18 04:00 97.8 63 18 117/59 (78) 96 10/05/18 04:00 60 10/05/18 00:00 98.0 70 18 114/55 (74) 95 10/05/18 00:00 65 10/04/18 21:03 75 146/54 10/04/18 21:00 Room Air 10/04/18 20:00 98.2 75 18 146/54 (84) 97 10/04/18 20:00 75 10/04/18 19:45 65 18 96 Room Air 21 10/04/18 16:00 98.5 82 18 129/56 (80) 97 10/04/18 15:30 71 10/04/18 12:00 97.8 68 18 139/64 (89) 99 10/04/18 11:31 64 Intake and Output 10/04/18 10/05/18 18:59 06:59 Intake Total 1200 ml 350 ml Balance 1200 ml 350 ml Intake Oral 1200 ml 350 ml # Voids 9 3 # Bowel Movements 2 1 Laboratory Tests 10/04/18 18:25: Troponin I 2.620H 10/05/18 06:35: Troponin I 2.007H, White Blood Count 6.8, Red Blood Count 4.76, Hemoglobin 13.7 , Hematocrit 42.2, Mean Corpuscular Volume 89, Mean Corpuscular Hemoglobin 28.8 , Mean Corpuscular Hemoglobin Concent 32.5, Red Cell Distribution Width 13.5, Platelet Count 204, Mean Platelet Volume 8.8, Neutrophils (%) (Auto) 68.8, Lymphocytes (%) (Auto) 20.8, Monocytes (%) (Auto) 6.4, Eosinophils (%) (Auto) 2.9, Basophils (%) (Auto) 1.2, Sodium Level 142, Potassium Level 4.4, Chloride Level 107, Carbon Dioxide Level 26, Anion Gap 9, Blood Urea Nitrogen 12, Creatinine 0.7, Estimat Glomerular Filtration Rate , Glucose Level 144H, Calcium Level 9.1, Pro-B-Type Natriuretic Peptide 996H, Triglycerides Level 102 , Cholesterol Level 205H, LDL Cholesterol 127H, HDL Cholesterol 54, Cholesterol/ HDL Ratio 3.8 Height (Feet): 5 Height (Inches): 5.00 Weight (Pounds): 160 General Appearance: alert EENT: normal ENT inspection Neck: normal alignment Cardiovascular: normal peripheral pulses, normal rate, regular rhythm Respiratory/Chest: chest wall non-tender, lungs clear, normal breath sounds Abdomen: normal bowel sounds, non tender, soft Extremities: normal inspection Edema: no edema noted Arm (L), no edema noted Arm (R), no edema noted Leg (L), no edema noted Leg (R), no edema noted Pedal (L), no edema noted Pedal (R), no edema noted Generalized Neurologic: responsive, motor weakness Skin: normal pigmentation, warm/dry Logan Scruggs DO Oct 05, 2018 09:24
--- NOTE | 2018-10-05 11:50 | NUR ---
NURSE NOTES: Patient AOx4, family member at the bedside requesting for leave AMA. Dr. Scruggs made aware patient left AMA and stated will straight to [facility]. Patient left with all belongings, ambulate with steady gait. monitor worker returned to air sampling and monitoring, IV removed, ID band removed and placed in shredder.
--- NOTE | 2018-10-05 12:20 | NUR ---
NURSE NOTES: Dr. Serra at the nursing station, made aware patient left AMA when to [facility].
--- NOTE | 2018-10-05 12:22 | Cardiac Electrophysiology PN ---
Assessment/Plan Assessment/Plan 1. Recurrent palpitation and documented supraventricular tachycardia at the rate of almost 200 beats per minute in a 77-year-old lady. This resulted in troponin elevation and inferolateral ST depression. Awaiting bed at [facility] for electrophysiology study and ablation It is of note that her followup EKG showed normal sinus rhythm with no evidence of pre-excitation. I discussed with the patient's nephew, who is the emergency room physician and is also an nut steamer on the phone and he also agrees that the patient needs to stay until transferred for electrophysiology study Patient however left AMA and told RN she will be going to [facility] 2. Non-ST elevation myocardial infarction with elevated troponin 0.17, 2.6, 2.0 and abnormal EKG, likely precipitated by SVT. On aspirin and Lopressor and Lipitor. May need cardiac cath or ischemia evaluation 3. Diabetes. On metformin and Amaryl. JARETH Emerson and RN Subjective Subjective Troponin was still high. No SVT overnight. No bed yet available at [facility]. Objective Last 24 Hour Vital Signs Date Time Temp Pulse Resp B/P (MAP) Pulse Ox O2 Delivery O2 Flow Rate FiO2 10/05/18 09:00 Room Air 10/05/18 08:18 70 141/66 10/05/18 08:00 97.8 70 17 141/66 (91) 98 10/05/18 07:10 60 14 96 Room Air 21 10/05/18 04:00 97.8 63 18 117/59 (78) 96 10/05/18 04:00 60 10/05/18 00:00 98.0 70 18 114/55 (74) 95 10/05/18 00:00 65 10/04/18 21:03 75 146/54 10/04/18 21:00 Room Air 10/04/18 20:00 98.2 75 18 146/54 (84) 97 10/04/18 20:00 75 10/04/18 19:45 65 18 96 Room Air 21 10/04/18 16:00 98.5 82 18 129/56 (80) 97 10/04/18 15:30 71 Intake and Output 10/04/18 10/05/18 19:00 07:00 Intake Total 1200 ml 350 ml Balance 1200 ml 350 ml Intake Oral 1200 ml 350 ml # Voids 9 3 # Bowel Movements 2 1 Laboratory Tests Test 10/04/18 18:25 10/05/18 06:35 Troponin I 2.620 ng/mL (0.000-0.056) 2.007 ng/mL (0.000-0.056) White Blood Count 6.8 K/UL (4.8-10.8) Red Blood Count 4.76 M/UL (4.20-5.40) Hemoglobin 13.7 G/DL (12.0-16.0) Hematocrit 42.2 % (37.0-47.0) Mean Corpuscular Volume 89 FL (80-99) Mean Corpuscular Hemoglobin 28.8 PG (27.0-31.0) Mean Corpuscular Hemoglobin Concent 32.5 G/DL (32.0-36.0) Red Cell Distribution Width 13.5 % (11.6-14.8) Platelet Count 204 K/UL (150-450) Mean Platelet Volume 8.8 FL (6.5-10.1) Neutrophils (%) (Auto) 68.8 % (45.0-75.0) Lymphocytes (%) (Auto) 20.8 % (20.0-45.0) Monocytes (%) (Auto) 6.4 % (1.0-10.0) Eosinophils (%) (Auto) 2.9 % (0.0-3.0) Basophils (%) (Auto) 1.2 % (0.0-2.0) Sodium Level 142 MMOL/L (136-145) Potassium Level 4.4 MMOL/L (3.5-5.1) Chloride Level 107 MMOL/L (98-107) Carbon Dioxide Level 26 MMOL/L (21-32) Anion Gap 9 mmol/L (5-15) Blood Urea Nitrogen 12 mg/dL (7-18) Creatinine 0.7 MG/DL (0.55-1.30) Estimat Glomerular Filtration Rate mL/min (>60) Glucose Level 144 MG/DL (74-106) H Calcium Level 9.1 MG/DL (8.5-10.1) Pro-B-Type Natriuretic Peptide 996 pg/mL (0-125) H Triglycerides Level 102 MG/DL (30-150) Cholesterol Level 205 MG/DL (< 200) H LDL Cholesterol 127 mg/dL (<100) H HDL Cholesterol 54 MG/DL (40-60) Cholesterol/HDL Ratio 3.8 (3.3-4.4) Bebeto Serra MD Oct 05, 2018 12:22
--- NOTE | 2018-10-05 13:05 | Cardiology Report ---
APPROVED REPORT EKG Measurement Heart [id number] Normal sinus rhythm Possible Left atrial enlargement Nonspecific ST abnormality Abnormal ECG
--- NOTE | 2018-10-05 13:07 | Cardiology Report ---
APPROVED REPORT EKG Measurement Heart [id number] Supraventricular tachycardia Marked ST abnormality due to inferior subendocardial ischemia Abnormal ECG
[2018-10-05] MEDS ORDERED: Atorvastatin 20mg tab ORAL SCH (21:00)
--- NOTE | 2018-10-06 19:43 | Cardiology Report ---
APPROVED REPORT EXAM: Two-dimensional and M-mode echocardiogram with Doppler and color Doppler. INDICATION Left ventricular function M-Mode DIMENSIONS IVSd0.9 (0.7-1.1cm)Left Atrium (MM)3.5 (1.6-4.0cm) LVDd4.8 (3.5-5.6cm)Aortic Root2.8 (2.0-3.7cm) PWd0.9 (0.7-1.1cm)Aortic Cusp Exc.1.5 (1.5-2.0cm) LVDs2.9 (2.5-4.0cm) PWs1.9 cm Normal left ventricular chamber size, systolic function and wall motion. Left ventricular ejection fraction estimated to be 65%. No evidence of left ventricular hypertrophy. No evidence of pericardial effusion. Left atrial size at upper limits of normal. Right cardiac chamber sizes are within normal limits. Focal aortic valve sclerosis with adequate cusp excursion. Thickened mitral valve leaflets with normal excursion. Mild mitral annulus and aortic root calcification. Pulmonic valve not well visualized. Normal tricuspid valve structure. IVC is normal in size with physiological collapse. A color flow and spectral Doppler study was performed and revealed: No aortic regurgitation. Mild to moderate mitral regurgitation. Mitral diastolic velocities suggest mild left ventricular diastolic dysfunction (Grade I). Trace tricuspid regurgitation. Tricuspid systolic velocities suggests peak right ventricular systolic pressure of 23 mmHg. pulmonic regurgitation present.
--- NOTE | 2018-10-06 20:44 | Discharge Summary ---
Discharge Summary Discharge Summary _ DATE OF ADMISSION: 10/03/2018 DATE OF DISCHARGE: 10/05/2018 Patient left AGAINST MEDICAL ADVICE REASON FOR ADMISSION: 77 years old female with past medical history of diabetes mellitus, asthma, history of palpitations, presented from home due to elevated heart rate for 2 hours. At triage the patient heart rate 196. Patient received adenosine 6 mg and converted to sinus rhythm. Patient had similar episodes in the past and was treated with medications. Patient had pulp operator Dr. Montes at [facility] that she follows. Laboratory work-up revealed mild leukocytosis WBC 12.5, stable hemoglobin and hematocrit. Stable electrolytes and renal parameters. Glucose 237. Troponin elevated 0.178, proBNP 204. EKG revealed ST depression in inferolateral leads. Chest x-ray revealed no acute cardiopulmonary pathology. Patient admitted to telemetry floor for further management. CONSULTANTS: pulp operator Dr. Collins pulmonary/critical care Dr. Carvalho [facility]SE: Patient admitted to telemetry floor. Serial troponin trended up -2.62; 2.007. Aerospace Quality Engineer followed. Elevated troponin and depressed ST in inferolateral leads were consistent with non-STEMI type II precipitated by SVT due to demand ischemia. Antiplatelet therapy with aspirin and beta blockage continued. Lipid panel revealed elevated LDL 127 and total cholesterol 205. Stable triglycerides. Patient educated on low-fat low-cholesterol diet. Statin continued.. Echocardiogram revealed preserved ejection fraction of 65% with no evidence of left ventricular hypertrophy. No evidence of pericardial effusion. No evidence of wall motion abnormality. Right ventricular systolic pressure of 20. Mild to moderate mitral regurgitation. According to patient , she had outpatient stress test less than a year ago, which was negative . Patient also had Holter at that time. Blood sugar was managed with metformin and Amaryl. GI prophylaxis provided. Supplemental oxygen provided as needed to keep pulse oximetry above 92%. Pulse oximetry was stable on room air. Aerospace Quality Engineer recommended electrophysiology study and ablation. Patient was placed on transfer list to [facility]. Follow up EKG showed normal sinus rhythm , no evidence of preexcitation. Patient 's condition was discussed with patient's nephew, who is an emergency room physician, and he agreed with pulp operator that the patient needs to stay until transfer for electrophysiology study. Patient also may need cardiac catheterization or ischemia evaluation. Since no bed was available, patient decided to leave AGAINST MEDICAL ADVICE with plan to go to [facility]. The risks and consequences of signing AGAINST MEDICAL ADVICE were discussed with patient in detail. Patient verbalized understanding, nevertheless signed AMA form and left. FINAL DIAGNOSES: Recurrent palpitations Supraventricular tachycardia Elevated troponin NSTEMI with elevated troponin and abnormal EKG, likely precipitated by SVT Diabetes mellitus Asthma Hypercholesterolemia Idania Mosley NP Oct 06, 2018 20:44
== END 2018-10-05 11:00 | disposition left against medical advice (07) | DRG 281 ==
LOC: EMR 20:08 → 2E 20:30 → EDBEDREQ 21:02
DX: I21.4 Non-ST elevation (NSTEMI) myocardial infarction (principal); I47.1 Supraventricular tachycardia; E11.9 Type 2 diabetes mellitus without complications; Z79.84 Long term (current) use of oral hypoglycemic drugs; J45.909 Unspecified asthma, uncomplicated; E78.00 Pure hypercholesterolemia, unspecified; Z88.2 Allergy status to sulfonamides; R00.2 Palpitations
CPT/HCPCS: 36415; 71045; 80048; 80053; 80061; 82550; 82553; 82962; 83690; 83880; 84443; 84484; 85025; 85610; 85730; 86140; 93005; 93306; 94664; 96374; 99291